=== PATIENT | male | born 1990 | race African-American/Black ===

== ENCOUNTER 2025-03-14 22:00 | Emergency (ER) | payer MEDICAID ==
[~2025-03-14] VITALS: Ht 182.9 cm; Wt 99.0 kg
[2025-03-14 22:04] VITALS: O2SAT 97
[2025-03-14 22:08] VITALS: TEMP 36.7; O2SAT 98
[2025-03-14 23:30] VITALS: BP 125/79; PULSE 110; RESP 18
[2025-03-14] MEDS: IBUPROFEN 600MG TABLET PO ONE (23:30)
== END 2025-03-14 23:45 | disposition home or self-care (01) ==
LOC: ER 22:00
DX: S62.607A Fracture of unspecified phalanx of left little finger, initial encounter for closed fracture (principal); Y04.0XXA Assault by unarmed brawl or fight, initial encounter; Y93.89 Activity, other specified; Y92.89 Other specified places as the place of occurrence of the external cause; Y99.8 Other external cause status
CPT/HCPCS: 29130; 73130; 99283